=== PATIENT | female | born 1985 | race Caucasian/White ===

== ENCOUNTER 2024-12-22 15:49 | Inpatient (IN) | payer MEDICAID ==
[~2024-12-22] VITALS: Ht 160 cm; Wt 137.6 kg
[2024-12-22 20:00] VITALS: BP 156/90; PULSE 88; RESP 18; TEMP 98.5; O2SAT 97
[2024-12-22 20:15] VITALS: BP 153/106; PULSE 110; RESP 20; TEMP 97.2; O2SAT 98
[2024-12-22] MEDS ORDERED: magnesium hydroxide 30ml (MOM) UD suspension PO PRN ×2 (21:05→21:10)
[2024-12-22] MEDS ORDERED: loperamide 2mg capsule PO PRN ×2 (21:05→21:10)
[2024-12-22] MEDS ORDERED: mag hydrox/Alum hydrox/simeth 30ml oral suspension PO PRN (21:05)
[2024-12-22] MEDS ORDERED: NICOTINE POLACRILEX 2 MG LOZENGE BC PRN (21:05)
[2024-12-22 21:30] VITALS: RESP 20; O2SAT 98
[2024-12-22 22:14] VITALS: BP 150/88; PULSE 88
[2024-12-23] MEDS ORDERED: PRAZ1CAP5 PO (02:15)
[2024-12-23] MEDS ORDERED: TOPI-255 PO (02:15)
[2024-12-23 06:44] LABS: MEAN PLATELET VOLUME 8.5 FL (7.4-10.4); RED CELL DISTRIBUTION WIDTH 13.6 % (11.5-14.5)
[2024-12-23 07:00] VITALS: RESP 16; O2SAT 97
[2024-12-23 07:22] LABS: CHOL/HDL RATIO 4.9 (0.00-4.99); CREATININE 0.59 MG/DL (0.40-0.90); LDL CHOLESTEROL 99 MG/DL (50-100); TOTAL CARBON DIOXIDE 21.7 MMOL/L (24-32); eCRCL 106 ML/MIN; eGFR > 90 ML/MIN
[2024-12-23 08:00] VITALS: BP 120/74; PULSE 104; RESP 16; TEMP 97.8; O2SAT 97
[2024-12-23] MEDS ORDERED: nicotine 21mg patch - 24 hr TD SCH (08:00)
[2024-12-23] MEDS: FLU VACC TS2025-26(6MOS UP)/PF (FLULAVAL) 45 MCG/0.5 ML SYRINGE IMVAC ONE (13:32)
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
--- NOTE | 2024-12-23 18:05 | HISTORY AND PHYSICAL-Residence ---
History & Physical Providers to CC Resident Creating Document: CHANDRA LANDEROS RES ~ History of Present Illness Reason for Admit\Complaint: MDD History of Present Illness 39-year-old female no significant past medical history admitted to the mental health unit for MDD and PTSD. She complains of headache, stress, and itching on her face. She has papular rash on the face, states he has been going on for the past one year. She also has macular rash on Bilateral antecubital fossa. She was advised by her PCP to get workup for lupus as she was noted to have a butterfly rash on the face. At this time on exam she does have mild erythema of the face but not characteristic with a butterfly rash. Drinks occasional alcohol, denies smoking or recreational drug use. Quit cannabis two years ago. She does have thoughts of harming herself today. Denies any significant autoimmune history in the family, mom has diabetes and dad Parkinson's. Allergies: Coded Allergies: fluoxetine (Verified Allergy, Unknown, artificial flu symptoms, 12/22/24) Home Medications Home Medications Active Reported Topiramate 25 Mg Tablet 3 Tab PO HS 30 Days Prazosin Hcl 1 Mg Capsule 7 Cap PO HS 30 Days Past Medical History Past Medical History Fatty liver Past Surgical History Surgical History Comment Stents in lower extremity Family History Family History: FH: Parkinson's disease FATHER, Onset:60 years & older FH: bipolar disorder FAMILY/OTHER, Onset:Unknown FH: depression FATHER, Onset:Unknown FH: diabetes mellitus MOTHER, Onset:50's - 60 High blood pressure MOTHER, Onset:Unknown ROS ROS Reviewed in full. All negative except for pertinent positive HPI. Exam Vitals: Vital Signs Date Time Temp Pulse Resp B/P (MAP) Pulse Ox O2 Delivery O2 Flow Rate FiO2 12/23/24 08:00 97.8 104 16 120/74 (89) 97 12/23/24 07:00 Room Air General: General: Awake and Alert, no acute distress. HEENT: Papular rash on the face and upper extremity, some of them are necrotic. Conjunctiva pink, Sclera clear, Mucus Membranes moist. Neck: Supple without masses and tenderness. Resp: Unlabored. Equal breath sounds bilaterally. Heart: Regular rhythm, normal S1 and S2, no rub, murmur or gallop. Abdomen: Soft and non tender no organomegaly. Normal bowel sounds x4 quadrant normoactive. No guarding or rigidity. Extremities: Bilateral antecubital fossa has macular rash. Trace bilateral lower extremity edema. Musculoskeletal: Normal posture and gait. No joint swelling, deformity or tenderness, full range of motion and strength 5 x 5 in all extremities. 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 Skin: Papular rash on the face with some of them having necrosis. Bilateral antecubital fossa has macular rash. Diagnostic Data Last Recorded Lab Results: 12/23/2462712/23/24627 Advance Care Planning Advanced Care plannin - 30 Minutes Additional Plan 39-year-old female no significant past medical history admitted to the mental health unit for MDD and PTSD. MDD PTSD Chronic macular rash on bilateral antecubital fossa and papular rash on the face Will benefit with referral to a yard warehouse worker outpatient We will give her triamcinolone ointment for now as she does have itching and mild erythema No other medical concerns or complaints at this time Management per psychiatrist, hospitalist team will continue to follow. Date of Service: Dec 23, 2024 Billing Provider: ANGELA HUMPHREY MD Common Visit Codes: [id number] INP/OBS CARE (HIGH) CHANDRA LANDEROS RES Dec 23, 2024 18:05 ANGELA HUMPHREY MD Dec 24, 2024 10:29
[2024-12-23] MEDS: ESCITALOPRAM 10 mg tablet 10 MG TABLET PO SCH (18:54)
[2024-12-23 19:00] VITALS: RESP 18; O2SAT 97
[2024-12-23 20:00] VITALS: BP 156/90; PULSE 88; RESP 18; TEMP 98.5; O2SAT 97
[2024-12-23] MEDS ORDERED: potassium Cl 20 mEq SR tablet PO PRN (21:50)
[2024-12-23] MEDS: potassium Cl 20 mEq SR tablet PO PRN (22:16)
[2024-12-24 06:31] LABS: LEUKOCYTE ESTERASE ,URINE NEGATIVE (Neg); NITRITES, URINE NEGATIVE (Neg); OCCULT BLOOD,URINE NEGATIVE (Neg)
[2024-12-24 06:56] LABS: UA COLLECTION TYPE CLN CATCH MIDSTREAM
[2024-12-24 07:00] VITALS: RESP 16; O2SAT 98
[2024-12-24 07:15] LABS: MUCUS STRANDS NONE SEEN /LPF (Neg); SQUAMOUS EPITHELIAL CELL,UR MANY /LPF (FEW)
[2024-12-24 08:00] VITALS: BP 131/81; PULSE 88; RESP 16; TEMP 98.3; O2SAT 98
[2024-12-24] MEDS: K and/or MAG REPLACEMENT MC SCH (08:00)
[2024-12-24] MEDS: mag hydrox/Alum hydrox/simeth 30ml oral suspension PO PRN (18:54)
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
[2024-12-24 19:31] VITALS: RESP 18; O2SAT 98
[2024-12-24 19:35] VITALS: BP 164/94; PULSE 108; RESP 18; TEMP 97; O2SAT 98
[2024-12-25 07:00] VITALS: RESP 16; O2SAT 99
[2024-12-25] MEDS: pantoprazole 40mg Tablet.DR PO SCH (07:35)
[2024-12-25 08:00] VITALS: BP 133/83; PULSE 110; RESP 16; TEMP 98.1; O2SAT 99
[2024-12-25] MEDS ORDERED: OLANZapine 5mg rapidly disint. tablet PO ONE (15:10)
--- NOTE | 2024-12-25 15:37 | PROGRESS NOTE ---
Daily Progress Note Providers to CC ~ Antibiotic Timeout Antibiotic Ordered?: No Subjective This is the hospitalist progress note on patients hospitalized at [facility]. The patient was on the phone with her mother when I initially walked by however the patient did get off the phone and discovered the patient has no acute medical complaints or concerns and there were none voiced by nursing staff. Objective Vital Signs Date Time Temp Pulse Resp B/P (MAP) Pulse Ox O2 Delivery O2 Flow Rate FiO2 12/25/24 08:00 98.1 110 16 133/83 (100) 99 Room Air Result Diagram: 12/23/2462712/24/24 0631 Gen. No acute distress alert and oriented, morbidly obese Lungs clear to ascultation bilaterally, no wheezes rales or rhonchi appreciated Heart normal sinus rhythm no murmurs rubs or clicks noted Abdomen soft nontender bowel sounds are normoactive Lower extremities no clubbing cyanosis, nor edema appreciated bilaterally Problem\Assessment\Plan Problems/Diagnosis: (1) MDD (major depressive disorder) #MDD # PTSD # SI Followed by Psychiatry # morbid obesity It would behoove the patient to lose weight as she is at risk for diabetes and cardiovascular issues however I did not discuss this at this juncture with the patient since the patient appears stable at this time and I did not want to cause any decompensation in her multiple psychiatric conditions. No acute medical complaints or concerns were voiced by the patient nor nursing staff The hospitalist service will continue to follow the patient Date of Service: Dec 25, 2024 Billing Provider: DEANNA CONNORS DO Common Visit Codes: [id number] INP/OBS CARE(LOW) DEANNA CONNORS DO Dec 25, 2024 15:37
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
[2024-12-25 19:09] VITALS: RESP 18; O2SAT 98
[2024-12-25 19:51] VITALS: BP 157/96; PULSE 90; RESP 18; TEMP 98.1; O2SAT 98
[2024-12-26 05:14] LABS: HBSAG SCREEN Negative (Negative); HEP B CORE AB, IGM Negative (Negative); HEP B CORE AB, TOT Negative (Negative)
[2024-12-26 07:00] VITALS: BP 112/46; PULSE 90; RESP 15; TEMP 97.9; O2SAT 95
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
[2024-12-26 19:05] VITALS: RESP 18; O2SAT 97
[2024-12-26 19:07] VITALS: BP 139/83; PULSE 94; RESP 18; TEMP 98.7; O2SAT 97
[2024-12-27 07:00] VITALS: RESP 16; O2SAT 98
[2024-12-27 08:00] VITALS: BP 140/81; PULSE 100; RESP 16; TEMP 98.3; O2SAT 98
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
--- NOTE | 2024-12-27 18:41 | PROGRESS NOTE- Residence ---
Progress Note - Resident Providers to CC Resident Creating Document: SEFERINO CAMACHO RES ~ Antibiotic Timeout Antibiotic Ordered?: No Subjective Patient was seen examined bedside, no acute urinary symptoms. Claims she had 10 episodes of diarrhea yesterday and four episodes today. However she claims of symptomatic improvement. Objective Vital Signs Date Time Temp Pulse Resp B/P (MAP) Pulse Ox O2 Delivery O2 Flow Rate FiO2 12/27/24 10:15 14 12/27/24 08:00 98.3 100 140/81 (100) 98 Room Air Result Diagram: 12/23/24 0628 12/27/24 0819 General: Awake and Alert, no acute distress. HEENT: Conjunctiva pink, Sclera clear, Mucus Membranes moist Neck: Supple without masses and tenderness. Resp: Unlabored. Equal breath sounds bilaterally. Heart: Regular rhythm, normal S1 and S2, no rub, murmur or gallop, muffled heart sounds. Abdomen: Soft and non tender no organomegaly. Normal bowel sounds x4 quadrant normoactive. No guarding or rigidity. Extremities: Normal ROM, no swelling, nontender. No cyanosis,clubbing or edema. FRONT END WEB DESIGNER: No gross motor or sensory abnormalities. Skin: Warm and Dry. Advance Care Planning Advanced Care plannin - 30 Minutes Plan Plan #MDD # PTSD # SI Followed by Psychiatry # morbid obesity Outpatient follow up # ongoing diarrhea Ten episodes of diarrhea yesterday Four episodes of diarrhea today Patient claims of symptomatic improvement since yesterday. Continue oral hydration Reconsult hospitalist team if diarrhea episodes worsened Continue loperamide as needed Seferino Connor Internal Medicine Resident PGY-2 Date of Service: Dec 27, 2024 Billing Provider: RUPERTO LYLES MD Common Visit Codes: [id number] INP/OBS CARE(MOD) SEFERINO CAMACHO RES Dec 27, 2024 18:41 RUPERTO LYLES MD Jan 03, 2025 06:46
[2024-12-27 19:00] VITALS: RESP 18; O2SAT 99
[2024-12-27 20:32] VITALS: BP 135/67; PULSE 82; RESP 18; TEMP 97.7; O2SAT 99
[2024-12-28 07:30] VITALS: BP 114/65; PULSE 72; RESP 18; TEMP 97.7; O2SAT 97
[2024-12-28 19:00] VITALS: RESP 16; O2SAT 96
[2024-12-28 20:00] VITALS: BP 156/84; PULSE 92; RESP 16; TEMP 98.3; O2SAT 96
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
[2024-12-28] MEDS: HALLS - SOOTHE MENTHOL 1.8 MG cough drop LOZENGE MM PRN (21:30)
[2024-12-29 07:30] VITALS: BP 122/65; PULSE 66; RESP 16; TEMP 97.8; O2SAT 96
[2024-12-29 19:00] VITALS: RESP 18; O2SAT 98
--- NOTE | 2024-12-29 19:18 | PROGRESS NOTE ---
Daily Progress Note Providers to CC ~ Antibiotic Timeout Antibiotic Ordered?: No Subjective This is the hospitalist progress note on patients hospitalized at [facility]. The patient informs me she feels fatigued and depressed since stopping Lamictal. The patient has no acute medical complaints or concerns however. Objective Vital Signs Date Time Temp Pulse Resp B/P (MAP) Pulse Ox O2 Delivery O2 Flow Rate FiO2 12/29/24 07:30 97.8 66 16 122/65 (84) 96 Room Air Result Diagram: 12/29/24 0706 Gen. No acute distress alert and oriented, morbidly obese Lungs clear to ascultation bilaterally, no wheezes rales or rhonchi appreciated Heart normal sinus rhythm no murmurs rubs or clicks noted Abdomen soft nontender bowel sounds are normoactive Lower extremities no clubbing cyanosis, nor edema appreciated bilaterally Problem\Assessment\Plan Problems/Diagnosis: (1) MDD (major depressive disorder) #MDD # PTSD # SI Followed by Psychiatry # morbid obesity It would behoove the patient to lose weight as she is at risk for diabetes and cardiovascular issues however I did not discuss this at this juncture with the patient since the patient appears stable at this time and I did not want to cause any decompensation in her multiple psychiatric conditions. No acute medical complaints or concerns were voiced by the patient nor nursing staff The hospitalist service will continue to follow the patient Date of Service: Dec 29, 2024 Billing Provider: DEANNA CONNORS DO Common Visit Codes: [id number] INP/OBS CARE(LOW) DEANNA CONNORS DO Dec 29, 2024 19:18
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
[2024-12-29 20:00] VITALS: BP 130/79; PULSE 73; RESP 18; TEMP 97.8; O2SAT 98
[2024-12-30 07:30] VITALS: RESP 17; O2SAT 97
[2024-12-30 08:32] VITALS: BP 132/67; PULSE 70; RESP 17; TEMP 98.1; O2SAT 97
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
[2024-12-30 19:00] VITALS: RESP 16; O2SAT 98
[2024-12-30 20:00] VITALS: BP 140/65; PULSE 84; RESP 16; TEMP 98.1; O2SAT 98
[2024-12-31 07:00] VITALS: RESP 16; O2SAT 96
[2024-12-31 08:00] VITALS: BP 116/63; PULSE 74; RESP 16; TEMP 97.8; O2SAT 96
--- NOTE | 2024-12-31 18:55 | PROGRESS NOTE- Residence ---
Progress Note - Resident Providers to CC Resident Creating Document: DAVIE MEANS RES ~ Antibiotic Timeout Antibiotic Ordered?: No Subjective Patient was seen and examined on bedside, reports that that she had bronchitis in August at that time she experienced shortness of breath. Currently she feels fine denies chest pain abdominal pain She also reports bilateral leg swelling for the past few months. Patient has history of varicose veins. No any active complain at the moment. Objective Vital Signs Date Time Temp Pulse Resp B/P (MAP) Pulse Ox O2 Delivery O2 Flow Rate FiO2 12/31/24 15:18 18 12/31/24 08:00 97.8 74 116/63 (80) 96 Room Air Result Diagram: 12/31/24817 General: Awake and Alert, no acute distress. HEENT: Conjunctiva pink, Sclera clear, Mucus Membranes moist Neck: Supple without masses and tenderness. Resp: Unlabored. Equal breath sounds bilaterally. Heart: Regular rhythm, normal S1 and S2, no rub, murmur or gallop, muffled heart sounds. Abdomen: Soft and non tender no organomegaly. Normal bowel sounds x4 quadrant normoactive. No guarding or rigidity. Extremities: Normal ROM, no swelling, nontender. No cyanosis,clubbing. Mild edema noted in bilateral feets. HEATER HELPER FORGE: No gross motor or sensory abnormalities. Skin: Warm and Dry. Advance Care Planning Advanced Care plannin - 30 Minutes Plan Plan Bilateral leg Swelling No wheezing ,no crackles, no shortness of breath CBC. Follow up with [facility] F/U vascular ultrasound # morbid obesity She need to work on her obesity outpatient, exercise follow up with pcp for possible weight loss management. In view of this will ordered Hba1 Psychiatrist Sheba As per psychiatrist team Davie Means PGY 1 IM The hospitalist service will continue to follow the patient. Date of Service: Dec 31, 2024 Billing Provider: KUSUM RICHTER MD, SANJAY, RES Dec 31, 2024 18:55
[2024-12-31 19:00] VITALS: RESP 16; O2SAT 98
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
[2024-12-31 20:00] VITALS: BP 137/74; RESP 18; TEMP 98.3; O2SAT 98
[2024-12-31 20:14] LABS: CREATININE 0.66 MG/DL (0.40-0.90); TOTAL CARBON DIOXIDE 24.3 MMOL/L (24-32); eCRCL 95 ML/MIN; eGFR > 90 ML/MIN
[2024-12-31 20:17] LABS: MEAN PLATELET VOLUME 9.4 FL (7.4-10.4); RED CELL DISTRIBUTION WIDTH 13.8 % (11.5-14.5)
[2025-01-01 07:00] VITALS: RESP 16; O2SAT 96
[2025-01-01 08:00] VITALS: BP 98/54; PULSE 91; RESP 16; TEMP 98.4; O2SAT 96
--- NOTE | 2025-01-01 10:30 | VASCULAR REPORT ---
BILATERAL LOWER EXTREMITY VENOUS DUPLEX REASON FOR EXAMINATION: Bilateral lower extremity pain and edema COMPARISON: US ABDOMEN SURVEY on DOS: 11/03/23, US ABDOMEN SURVEY on DOS: 11/03/23 TECHNIQUE: Using real-time freeze-frame technique with a high-frequency transducer, multiple longitudinal and transverse sections were obtained. Simultaneous color flow and spectral Doppler imaging was performed. FINDINGS: There is good visualization of the deep venous system with no intraluminal filling defects identified. Normal venous compressibility is seen and there is flow augmentation. Color flow Doppler imaging is unremarkable. The greater saphenous veins appear small, occluded and echogenic, likely secondary to ablation procedure. IMPRESSION: NO EVIDENCE OF DEEP VENOUS THROMBOSIS.
[2025-01-01 19:00] VITALS: RESP 18; O2SAT 99
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
[2025-01-01 20:00] VITALS: BP 147/74; PULSE 95; RESP 18; TEMP 97.7; O2SAT 98
[2025-01-02 07:00] VITALS: RESP 12; O2SAT 95
[2025-01-02 08:00] VITALS: BP 104/60; PULSE 57; RESP 12; TEMP 97.6; O2SAT 95
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
--- NOTE | 2025-01-02 18:25 | PROGRESS NOTE- Residence ---
Progress Note - Resident Providers to CC Resident Creating Document: DEBBIE CAMP, RES ~ Antibiotic Timeout Antibiotic Ordered?: No Subjective The patient was seen and examined at bedside today. She reports swelling in her feet, lethargy and cold intolerance. Objective Vital Signs Date Time Temp Pulse Resp B/P (MAP) Pulse Ox O2 Delivery O2 Flow Rate FiO2 01/02/25 16:17 16 01/02/25 08:00 97.6 57 104/60 (75) 95 Room Air Result Diagram: 12/31/24 19101/02/25 0700 Adult female, alert and oriented, not in acute distress, obese Head: Normocephalic with an atraumatic Eyes: Pupils- 3mm, reacting to light, conjunctiva- anicteric Nose and throat: No polyps, septum- normal, no mucosal ulcers Neck: Supple, no lymphadenopathy, no carotid bruit Respiratory: No use of accessory muscles of respiration, Bilateral normal vesiscular breath sounds heard. No wheeze, rhochi or creps Cardiac: S1-S2 heard, rhythm regular, no gallop/murmur Abdomen: non distended, no tenderness, no organomegaly, bowel sounds - heard Extremities: no clubbing, nonpitting bilateral pedal edema, no deformities, peripheral pulses - 2+ Skin: warm and dry, no rash, no purpura Neuro: No focal deficit, gross cranial nerve exam - normal Plan Plan Bilateral leg Swelling Cold intolerance Follow up with TSH. Morbid obesity She need to work on her obesity outpatient, exercise follow up with PCP for possible weight loss management. PTSD Management as per Psychiatry. Disposition: Hospitalist team will continue to monitor the patient during the course of her hospital stay. Debbie Camp MD Internal Medicine Resident, PGY-2 Date of Service: Jan 02, 2025 Billing Provider: RUPERTO LYLES MD Common Visit Codes: [id number] INP/OBS CARE(MOD) DEBBIE CAMP, AJ Jan 02, 2025 18:25 RUPERTO LYLES MD Jan 03, 2025 06:46
[2025-01-02 19:00] VITALS: RESP 20; O2SAT 99
[2025-01-02 20:00] VITALS: BP 159/75; PULSE 86; RESP 20; TEMP 97.7; O2SAT 99
[2025-01-03 07:00] VITALS: RESP 16; O2SAT 98
[2025-01-03 08:00] VITALS: BP 115/62; PULSE 64; RESP 16; TEMP 97.6; O2SAT 98
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
[2025-01-03 19:00] VITALS: RESP 18; O2SAT 96
[2025-01-03 20:00] VITALS: BP 151/92; PULSE 80; RESP 18; TEMP 97.9; O2SAT 96
[2025-01-04 07:00] VITALS: RESP 16; O2SAT 93
[2025-01-04 08:00] VITALS: BP 111/64; PULSE 67; RESP 16; TEMP 97.4; O2SAT 93
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
--- NOTE | 2025-01-04 18:37 | PROGRESS NOTE- Residence ---
Progress Note - Resident Providers to CC Resident Creating Document: ISSAC HORTON, RES ~ Antibiotic Timeout Antibiotic Ordered?: No Subjective The patient has been evaluated in mental health unit. The patient reports rash in left upper extremity. Objective Vital Signs Date Time Temp Pulse Resp B/P (MAP) Pulse Ox O2 Delivery O2 Flow Rate FiO2 01/04/25 09:59 16 01/04/25 08:00 97.4 67 111/64 (80) 93 Room Air Physical exam: General: Awake, alert, oriented. No acute distress. Well-developed, hydrated and well-built nourished. No anemia, Jaundice or clubbing. HEENT: Conjunctive are pink, sclerae clear, no icterus, pupil is equal in both sides, reactive to light, no ear discharge, no pharyngeal erythema or an edema. Neck: Supple, no adenopathy, thyromegaly. Trachea is midline. No JVD. Chest: Respiratory: Vesicular breath sounds. No ronchi, crepitus or wheezing. Resonance is normal upon percussion of all lung fountain. Cardiovascular: S1-S2 regular sinus rhythm and, regular rate, no gallops, no rubs, no murmurs Abdomen: No visible distention, Bowel sounds present on auscultation, on palpation: soft, nontender, no guarding, no rigidity. Extremities: No obvious deformities, 1+ pedal edema, capillary refill intact, peripheral pulsations are intact on both sides Neurologic: alert and conscious, oriented to place, person and time, preserved memory, normal speech. Cranial nerves I-XII: Normal. Motor system: Preserved power, coordination, no evidenced involuntary movements, strength 5/5 in four extremities. Skin: Warm and dry. Presence of macular erythematous rash in the left upper extremity. Result Diagram: 12/31/24191501/04/25 0652 Assessment Assessment 39-year-old female patient admitted to mental health unit due to PTSD, major depressive disorder, generalized anxiety disorder, suicidal ideation Plan Plan PTSD Major depressive disorder: Suicidal ideation: Management as per Psychiatry. Left upper extremity rash: Possible contact dermatitis: Triamcinolone cream topical, apply b.i.d. Morbid obesity She need to work on her obesity outpatient, exercise follow up with PCP for possible weight loss management. Disposition: Hospitalist team will continue to monitor the patient during the course of her hospital stay. Issac Pickett Internal Medicine Resident [facility] Date of Service: Jan 04, 2025 Billing Provider: KUSUM RICHTER MD,ISSAC ESCALANTE, RES Jan 04, 2025 18:37
[2025-01-04] MEDS ORDERED: albuterol 2.5 MG/3 ML nebule NEB PRN (18:40)
[2025-01-04 19:00] VITALS: RESP 20; O2SAT 97
[2025-01-04 20:00] VITALS: BP 123/84; PULSE 96; RESP 20; TEMP 97.6; O2SAT 97
[2025-01-05 07:00] VITALS: RESP 16; O2SAT 97
[2025-01-05 08:00] VITALS: BP 119/68; PULSE 72; RESP 16; TEMP 98; O2SAT 97
[2025-01-05] MEDS ORDERED: TRAZ-251 PO (12:40)
[2025-01-05] MEDS ORDERED: PRAZ1CAP5 PO (12:40)
[2025-01-05] MEDS ORDERED: PANT40TA54 PO (12:40)
[2025-01-05] MEDS ORDERED: HYDR-3686 PO (12:40)
[2025-01-05] MEDS ORDERED: PRAZ2CAP2 PO (12:40)
[2025-01-05] MEDS ORDERED: Lorazepam PO (12:40)
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
[2025-01-05 19:00] VITALS: RESP 14; O2SAT 98
[2025-01-05 20:00] VITALS: BP 123/80; PULSE 92; RESP 14; TEMP 98.1; O2SAT 98
[2025-01-06 07:00] VITALS: RESP 17; O2SAT 96
[2025-01-06 08:00] VITALS: BP 133/67; PULSE 83; RESP 17; TEMP 97.4; O2SAT 96
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
== END 2025-01-06 16:42 | disposition home or self-care (01) | DRG 751 ==
LOC: ADULT MH 19:00
PROVIDERS: ADMIT Psychiatry & Neurology Psychiatry; ATTEND Psychiatry & Neurology Psychiatry
PROC: GZHZZZZ Group Psychotherapy (ICD-10-PCS; principal; 2024-12-28)
PROC: GZ51ZZZ Individual Psychotherapy, Behavioral (ICD-10-PCS; 2024-12-30)
DX: F33.2 Major depressive disorder, recurrent severe without psychotic features (principal); Z68.43 Body mass index [BMI] 50.0-59.9, adult; R45.851 Suicidal ideations; E66.01 Morbid (severe) obesity due to excess calories; F43.10 Post-traumatic stress disorder, unspecified; F41.1 Generalized anxiety disorder; M79.89 Other specified soft tissue disorders; F41.0 Panic disorder [episodic paroxysmal anxiety]; Z88.8 Allergy status to other drugs, medicaments and biological substances; Z79.899 Other long term (current) drug therapy; Z83.3 Family history of diabetes mellitus
CPT/HCPCS: 36415; 80053; 80061; 81001; 83036; 83880; 84132; 84439; 84443; 85025; 85651; 86038; 86140; 86704; 86705; 87081; 87340; 93970; Q0177